=== PATIENT | female | born 1955 | race Caucasian/White ===

== ENCOUNTER → 2023-03-31 12:24 | Outpatient (CLI) | payer MEDICARE, SELFPAY ==
--- NOTE | 2023-03-31 12:29 | CA_ITS ---
APPROVED REPORT EXAM: Comprehensive 2D, Doppler, and color-flow Echocardiogram Backing In Machine Tender: Anne Yen RDCS Ht: 5 ft 3 in Wt: 180lbs BSA: 1.85 BP: 152/54 mmHg Indications: Shortness of Breath, CAD, Hyperlipidemia, Hypertension/HDD 2D Dimensions LVOT 1.84 cm (M/F) 1.5-2.5 LA Volume 71.80 mL LA Volume Index 38.81 mL/m2 (M/F) 16-34 M-Mode Dimensions RVDd 2.65 cm (0.9-2.6) LA Diam 4.09 cm (1.9-4.0) LVDd 5.08 cm (3.5-5.7) Ao Diam 2.65 cm (2.0-3.7) LVDs 3.72 cm (3.5-5.7) IVSd 0.79 cm (0.6-1.1) PWd 0.86 cm (0.6-1.1) EF (Teich) 52.00% FS 26.80% EDV (Teich) 122.70 mL TAPSE 2.78 (<1.7) ESV (Teich) 58.90 mL LV Diastology E Decel Time 197.00 (160-240 msec) E/A Ratio 0.8 MED E' 6.90 (< 7 cm/sec) E'/MED E' Ratio 9.51 (>14) LAT E' 4.90 (<10 cm/sec) E/LAT E' Ratio 13.39 (>14) Aortic Valve AI PHT 427.00 ms Mitral Valve MV E Max Mahesh. 66.00 (40-130 cm/s) MV A Velocity 82.00 (40-130 cm/s) E/A Ratio 0.80 MV Decel. Time 197.00 (160-240 ms) MV PHT 58.00 ms Left Ventricle The left ventricle is normal size. The left ventricular systolic function is normal. The left ventricular ejection fraction is within the normal range. There is increased LV wall thickness. There is normal LV segmental wall motion. Diastolic function is indeterminate. LVEF is 55%. Right Ventricle The right ventricle is normal size. The right ventricular systolic function is normal. There is increased RV wall thickness. Atria Left atrium is mildly dilated. The right atrium size is normal. There is no Doppler evidence of interatrial shunt. Aortic Valve The aortic valve is mildly thickened. There is no aortic valvular stenosis. Mild aortic regurgitation. Mitral Valve The mitral valve is mildly thickened. No evidence of mitral valve stenosis. Mild mitral regurgitation. Tricuspid Valve The tricuspid valve leaflets are thin and pliable. Trace tricuspid regurgitation. There is insufficient TR jet to estimate RVSP. Pulmonic Valve The pulmonary valve is normal in structure. Trace pulmonic regurgitation. Great Vessels The aortic root is normal in size. The ascending aorta is normal in size. IVC is normal in size and collapses >50% with inspiration. Pericardium There is no pericardial effusion. Other Information Study Quality: Fair Conclusion Normal biventricular systolic function. Mild AI Mild MR Electronically signed by : Swapna Hope, 04/06/2023 08:44:42
== END ==
LOC: RT 12:26
PROVIDERS: PCP Nurse Practitioner Family; Visit Provider Internal Medicine
DX: E78.5 Hyperlipidemia, unspecified (principal); I10 Essential (primary) hypertension; I25.10 Atherosclerotic heart disease of native coronary artery without angina pectoris; I31.39 Other pericardial effusion (noninflammatory); Z86.79 Personal history of other diseases of the circulatory system; R06.02 Shortness of breath
CPT/HCPCS: 93306